=== PATIENT | female | born 1950 | race Caucasian/White ===

== ENCOUNTER 2017-11-08 09:59 | Observation (INO) ==
[2017-11-08 11:21] LABS: Basophils % 0.4 % (0.0-0.8); Eosinophils # 0.1 10*3/uL (0.0-0.87); Eosinophils % 1.8 % (0.00-10.9); Hematocrit 36.1 VOL% (35.7-47.0); Hemoglobin 12.2 GM/DL (12.0-16.0); Immature Granulocytes % 0.4 %; Immature Granulocytes Absolute 0.03 #; Lymphocytes # 2.4 10*3/uL (1.4-4.0); Lymphocytes % 32.7 % (21.3-54.2); Mean Corpuscular HGB Conc 33.8 GM/DL (32-36); Mean Corpuscular Hemoglobin 31 PG (27-34); Mean Corpuscular Volume 90.5 FL (87-102); Mean Platelet Volume 10.5 FL (9.6-12.0); Monocytes # 0.6 10*3/uL (0.11-0.8); Monocytes % 8.1 % (1.7-12.7); Neutrophils # 4.1 10*3/uL (1.4-7.4); Neutrophils % 56.6 % (38.7-73.9); Platelet Count 226 T/CUMM (130-400); Red Blood Count 3.99 MC/CUMM (3.8-5.5); Red Cell Distribution Width 12.8 % (9.3-17.3); White Blood Count 7.2 T/CUMM (4-12)
[2017-11-08 11:34] LABS: INR 0.9; PT Patient Result 9.5 SECS; Partial Thromboplastin Time 25.5 SECS (0-40)
[2017-11-08 11:39] LABS: Troponin I 0.057 NG/ML (0.00-0.045)
[2017-11-08 11:45] LABS: Albumin 3.9 G/DL (3.4-5.0); Bilirubin,Total 0.7 MG/DL (0.2-1.0); Calcium 10.4 MG/DL (8.5-10.1); Thyroid Stimulating Hormone 2.04 uIU/ml (0.358-3.74); Total Protein 7.3 G/DL (6.4-8.3)
[2017-11-08] MEDS ORDERED: ZALEPLON 5 MG CAPSULE PO PRN (12:40)
[2017-11-08] MEDS ORDERED: MAGNESIUM SULF RIDER 2 GM in PREMIX 1 EACH IV PRN (12:40)
[2017-11-08] MEDS ORDERED: ACETAMINOPHEN 325 MG TABLET PO PRN (12:40)
[2017-11-08] MEDS ORDERED: MAGNESIUM SULF RIDER 4 GM in PREMIX 1 EACH IV PRN (12:40)
[2017-11-08] MEDS ORDERED: DOCUSATE SODIUM 100 MG CAPSULE PO PRN (12:40)
[2017-11-08] MEDS ORDERED: ONDANSETRON 4 MG/2 ML VIAL IV PRN (12:40)
[2017-11-08] MEDS ORDERED: CARVEDILOL 3.125 MG TABLET PO STA (12:43)
[2017-11-08] MEDS: CARVEDILOL 12.5 MG TABLET PO SCH (21:37)
[2017-11-08] MEDS: CALCIUM (CARBONATE) 500 MG TABLET PO SCH (21:37)
[2017-11-08] MEDS: ENOXAPARIN 40 MG/0.4 ML SYRINGE SUBCUT SCH (21:38)
[2017-11-09 04:53] LABS: Basophils % 0.7 % (0.0-0.8); Eosinophils # 0.2 10*3/uL (0.0-0.87); Eosinophils % 3.6 % (0.00-10.9); Hematocrit 34.5 VOL% (35.7-47.0); Hemoglobin 11.4 GM/DL (12.0-16.0); Immature Granulocytes % 0.2 %; Immature Granulocytes Absolute 0.01 #; Lymphocytes # 2.8 10*3/uL (1.4-4.0); Lymphocytes % 47.3 % (21.3-54.2); Mean Corpuscular Hemoglobin 30 PG (27-34); Mean Corpuscular Volume 90.8 FL (87-102); Mean Platelet Volume 10.6 FL (9.6-12.0); Monocytes # 0.6 10*3/uL (0.11-0.8); Monocytes % 9.4 % (1.7-12.7); Neutrophils # 2.3 10*3/uL (1.4-7.4); Neutrophils % 38.8 % (38.7-73.9); Platelet Count 220 T/CUMM (130-400); White Blood Count 5.9 T/CUMM (4-12)
[2017-11-09 05:15] LABS: Calcium 9.9 MG/DL (8.5-10.1); Osmolality,Calculated 280.1 MOS/KG (273-304); Potassium 3.6 MMOL/L (3.5-5.1)
[2017-11-09] MEDS: CARVEDILOL 12.5 MG TABLET PO SCH ×2 (08:24→21:07)
[2017-11-09] MEDS: CALCIUM (CARBONATE) 500 MG TABLET PO SCH ×2 (08:24→21:07)
[2017-11-09] MEDS: ENOXAPARIN 40 MG/0.4 ML SYRINGE SUBCUT SCH (21:08)
[2017-11-10] MEDS: CARVEDILOL 12.5 MG TABLET PO SCH (09:39)
[2017-11-10] MEDS: CALCIUM (CARBONATE) 500 MG TABLET PO SCH (09:39)
[2017-11-10 11:24] VITALS: BP 125/63
[2017-11-12] MEDS ORDERED: NON-FORMULARY MEDICATION (Alendronate [Fosamax] 70 MG) PO SCH (07:30)
== END 2017-11-10 12:45 | disposition home or self-care (01) ==
LOC: N.EDINP 09:59 → N.ED 09:59 → N.TELEN 13:38
PROVIDERS: ADMIT Internal Medicine Clinical Cardiac Electrophysiology; ATTEND Internal Medicine Clinical Cardiac Electrophysiology